=== PATIENT | male | born 1955 | race American Indian/Alaskan Native ===

== ENCOUNTER 2017-03-09 08:07 | Day surgery (SDC) | payer OTHER ==
[2017-03-02 09:38] VITALS: BMI 27.0
[2017-03-09] MEDS ORDERED: Propofol 10 mg/ml Inj (20 ML) ONE (08:31)
[2017-03-09] MEDS ORDERED: Lactated Ringer's 1,000 ML IV SCH (10:30)
[2017-03-09 13:00] VITALS: BP 114/74; PULSE 55; RESP 16; TEMP 97.6; O2SAT 98
== END 2017-03-09 12:41 | disposition home or self-care (01) ==
LOC: ENDO 08:07
PROVIDERS: ATTEND Internal Medicine
DX: K29.70 Gastritis, unspecified, without bleeding (principal); K44.9 Diaphragmatic hernia without obstruction or gangrene; K63.5 Polyp of colon; K64.8 Other hemorrhoids; R63.4 Abnormal weight loss; R19.5 Other fecal abnormalities
CPT/HCPCS: 43239; 45380; 88305; 88312; 88342; J2001; J2704; J3010; J7040; J7120